=== PATIENT | female | born 2000 | race Caucasian/White ===

== ENCOUNTER 2023-12-31 23:05 | Emergency (ER) | payer OTHER ==
[~2023-12-31] VITALS: Ht 172.7 cm; Wt 82.0 kg
[2023-12-31 23:15] VITALS: TEMP 98.2; O2SAT 99
[2023-12-31] MEDS ORDERED: LIDO700A15 TP (23:41)
[2023-12-31] MEDS ORDERED: CYCL5TAB MT (23:41)
[2023-12-31] MEDS ORDERED: CYCLOBENZAPRINE 10MG TABLET PO SCH (23:45)
[2023-12-31] MEDS ORDERED: KETOROLAC 15MG/ML VIAL IM ONE (23:45)
[2023-12-31 23:57] VITALS: BP 110/80; PULSE 70; RESP 15
== END 2024-01-01 00:13 | disposition home or self-care (01) ==
LOC: ER 23:18
DX: M54.9 Dorsalgia, unspecified (principal)
CPT/HCPCS: 99283; 81025; J1885